=== PATIENT | male | born 1955 | race Caucasian/White ===

== ENCOUNTER → 2024-10-30 08:33 | Outpatient (REF) | payer MEDICARE, SELFPAY ==
[2024-10-30 09:20] LABS: Hematocrit 45.6 % (39.0-52.0); Hemoglobin 15.2 g/dL (13.0-18.0); Mean Corp Hgb Conc. 33.3 g/dL (33.0-37.0); Mean Corpuscular Volume 85.2 fL (80.0-94.0); Nucleated Red Blood Cells % 0 % (-); Platelet Count 243 10^3/uL (130-400); Red Cell Dist. Width 12.8 % (11.5-14.5)
[2024-10-30 10:18] LABS: ALT (SGPT) 28 U/L (0-50); AST (SGOT) 24 U/L (17-59); Albumin 4.6 g/dl (3.5-5.0); Alkaline Phosphatase 88 U/L (38-126); Blood Urea Nitrogen 14 mg/dl (9-20); Calcium 10.0 mg/dl (8.4-10.2); Carbon Dioxide 23 mmol/L (22-30); Chloride 107 mmol/L (98-107); Glucose 99 mg/dl (70-99); HDL Cholesterol 41 mg/dl; LDL Cholesterol, Calculated 90 mg/dl; Potassium 4.1 mmol/L (3.5-5.1); Sodium 141 mmol/L (135-145); Total Protein 7.1 g/dl (6.3-8.2); Very Low Density Lipoprotein 28 mg/dl (0-30); eGFR > 60.00
[2024-10-30 10:20] LABS: Vitamin D, 25-OH*** 35.5 ng/mL (30-80)
[2024-10-30 10:33] LABS: TSH 1.13 uIU/ml (0.47-4.68)
[2024-10-30 10:52] LABS: Vitamin B12 440 pg/ml (239-931)
== END ==
LOC: REG 08:33
PROVIDERS: ATTENDING PHYSICIAN Psychiatry & Neurology Psychiatry
DX: E55.9 Vitamin D deficiency, unspecified (principal); D53.8 Other specified nutritional anemias; E78.2 Mixed hyperlipidemia; F31.81 Bipolar II disorder; Z79.899 Other long term (current) drug therapy
CPT/HCPCS: 36415; 80053; 80061; 82306; 82607; 84443; 85025